=== PATIENT | female | born 1945 | race Caucasian/White ===

== ENCOUNTER 2018-03-06 16:30 | Inpatient (IN) | payer MEDICARE, MEDICAID ==
[2018-03-06] MEDS ORDERED: Sodium Chloride 0.9% 10 ML Syringe FLUSH PRN (16:35)
[2018-03-06 17:42] LABS: CHLORIDE,CL 96 mmol/L (98-107); SODIUM,NA 134 mmol/L (136-145)
[2018-03-06] MEDS ORDERED: Lactated Ringers 1,000 ML IV SCH (17:45)
[2018-03-06 17:52] LABS: ANION GAP 13.2 mmol/L (10-20)
--- NOTE | 2018-03-06 19:53 | EDM.PDOC ---
ED HPI GENERAL MEDICAL PROBLEM - General Chief Complaint: General Source of Information: Reports: Patient History Limitations: Reports: No Limitations - History of Present Illness INITIAL COMMENTS - FREE TEXT/NARRATIVE: Presents to ER with complaints of weakness, sore throat, and lightheadedness. Was initially seen in clinic and was brought to ER. She states that she has felt poorly for the past several days. She has not been checking her temp at home. She states that her shortness of breath is not much worse than normal. Denies nausea,vomiting. She complains of severe sore throat and feels that when she coughs, her throat becomes irritated and she tastes blood. She complains that her stools have been "dark" the past couple of days. Denies any stan rectal bleeding. No abdominal pain. Has not been diaphoretic. In the clinic, staff stated that her blood pressure was approx. 60 systolic. Location: Reports: Abdomen ("dark stools"), Generalized, Other (sore throat) Quality: Reports: Ache Severity: Moderate - Related Data Allergies Allergy/AdvReac Type Severity Reaction Status Date / Time No Known Allergies Allergy Verified 03/06/18 17:06 Home Meds: Home Meds Acetaminophen [Tylenol] 650 mg PO Q8HR PRN 05/17/15 [History] Denosumab [Prolia] 60 mg SUBCUT Q180D 05/17/15 [History] Omeprazole 20 mg PO ACBRK #30 cap.cr 06/12/15 [Rx] busPIRone [Buspar] 5 mg PO BID #60 tablet 06/12/15 [Rx] Albuterol [Ventolin HFA] 1 puff PO Q4H PRN 03/06/18 [History] Apixaban [Eliquis] 2.5 mg PO BID 03/06/18 [History] Calcium Carbonate/Vitamin D3 [Calcium 600-Vit D3 500 Softgel] 1 cap PO DAILY 06/23 [History] Calcium Citrate/Vitamin D3 [Calcitrate + Vit D Cap (315 MG/250 UNITS)] 1 tab PO BIDMEALS 03/06/18 [History] Carbidopa/Levodopa [Sinemet 10-100 mg Tablet] 1 tab PO BID 03/06/18 [History] Cholecalciferol (Vitamin D3) [Vitamin D3] 1,000 unit PO DAILY 03/06/18 [History] Clopidogrel Bisulfate [Clopidogrel] 75 mg PO DAILY 03/06/18 [History] Docusate Sodium 100 mg PO DAILY 03/06/18 [History] Fluticasone/Vilanterol [Breo Ellipta 200-25 Mcg INH] 1 puff PO DAILY 03/06/18 [ History] Metoprolol Succinate 25 mg PO DAILY 03/06/18 [History] Nitroglycerin [Nitrostat] 0.4 mg SL ASDIRECTED PRN 03/06/18 [History] Umeclidinium [place] [Incruse Ellipta*] 1 puff PO DAILY 03/06/18 [History] atorvaSTATin [Lipitor] 40 mg PO BEDTIME 03/06/18 [History] buPROPion [Wellbutrin] 75 mg PO BID 03/06/18 [History] Past Medical History Cardiovascular History: Reports: Afib, High Cholesterol, Hypertension Respiratory History: Reports: COPD Musculoskeletal History: Reports: Arthritis Endocrine/Metabolic History: Reports: Vitamin D Deficiency Social & Family History - Family History Endocrine/Metabolic: Reports: Diabetes, type II Oncologic: Reports: Breast ED ROS GENERAL - Review of Systems Review Of Systems: See Below Constitutional: Reports: No Symptoms, Fever, Chills, Fatigue HEENT: Reports: Throat Pain Respiratory: Reports: Shortness of Breath Cardiovascular: Reports: Dyspnea on Exertion, Lightheadedness Endocrine: Reports: No Symptoms GI/Abdominal: Reports: Other (states that she has had dark stools) : Reports: No Symptoms Musculoskeletal: Reports: No Symptoms Skin: Reports: No Symptoms Neurological: Reports: No Symptoms Psychiatric: Reports: No Symptoms Hematologic/Lymphatic: Reports: No Symptoms Immunologic: Reports: No Symptoms ED EXAM, GENERAL - Physical Exam Exam: See Below Exam Limited By: No Limitations General Appearance: Alert, Anxious, Mild Distress Nose: Normal Inspection, Normal Mucosa, No Blood Throat/Mouth: Normal Lips, Normal Gums, Other (no significant erythema or masses noted.) Head: Atraumatic, Normocephalic Neck: Normal Inspection, Supple, Non-Tender, Full Range of Motion Respiratory/Chest: No Respiratory Distress, Lungs Clear, Normal Breath Sounds, No Accessory Muscle Use, Chest Non-Tender Cardiovascular: Normal Peripheral Pulses, Regular Rate, Rhythm, No Edema, No Gallop, No JVD, No Murmur, No Rub Peripheral Pulses: 4+: Radial (R) GI/Abdominal: Normal Bowel Sounds, Soft, Non-Tender, No Distention, No Abnormal Bruit, No Mass (Female) Exam: Deferred Rectal (Female) Exam: Normal Exam, Normal Rectal Tone, Heme - Stool Back Exam: Normal Inspection, Full Range of Motion Extremities: Normal Inspection, Normal Range of Motion, Non-Tender, Normal Capillary Refill Neurological: Alert, Oriented, CN II-XII Intact, Normal Cognition, Normal Reflexes, No Motor/Sensory Deficits Psychiatric: Normal Affect, Anxious Skin Exam: Warm, Dry, Pallor EKG INTERPRETATION EKG Date: 03/06/18 Rhythm: Other (paced) Course - Vital Signs Last Recorded V/S: Last Vital Signs Temp 36.1 C 03/06/18 16:30 Pulse 90 03/06/18 16:30 Resp 20 03/06/18 16:30 BP 105/39 L 03/06/18 16:30 Pulse Ox 96 03/06/18 16:30 - Orders/Labs/Meds Orders: Active Orders 24 hr Category Date Time Status EKG Documentation Completion [RC] STAT Care 03/06/18 16:36 Active Chest 1V Frontal [CR] Stat Exams 03/06/18 16:36 Taken CULTURE BLOOD [BC] Stat Lab 03/06/18 16:53 Results CULTURE BLOOD [BC] Stat Lab 03/06/18 16:59 Results CULTURE STREP A CONFIRMATION [RM] Stat Lab 03/06/18 18:26 Results STREP SCRN A RAPID W CULT CONF [RM] Stat Lab 03/06/18 18:26 Results UA W/MICROSCOPIC [URIN] Stat Lab 03/06/18 16:35 Ordered Lactated Ringers [Ringers, Lactated] 1,000 ml Med 03/06/18 17:45 Active IV ASDIRECTED Sodium Chloride 0.9% [Saline Flush] Med 03/06/18 16:35 Active 10 ml FLUSH ASDIRECTED PRN Blood Culture x2 Reflex Set [OM.PC] Stat Oth 03/06/18 16:36 Ordered Peripheral IV Insertion Adult [OM.PC] Routine Oth 03/06/18 16:36 Ordered Medication Orders Lactated Ringer's (Ringers, Lactated) 1,000 mls @ 500 mls/hr IV ASDIRECTED MARINA Last Admin: 03/06/18 18:23 Dose: 500 mls/hr Sodium Chloride (Saline Flush) 10 ml FLUSH ASDIRECTED PRN PRN Reason: Keep Vein Open Labs: Laboratory Tests 03/06/18 03/06/18 03/06/18 Range/Units 16:53 16:53 16:53 WBC 13.9 H (4.0-10.0) x10^3/uL RBC 3.72 L (4.00-5.50) x10^6/uL Hgb 11.8 L (12.0-16.0) g/dL Hct 34.8 (33.0-47.0) % MCV 93.5 H D (78.0-93.0) fL MCH 31.7 (26.0-32.0) pg MCHC 33.9 (32.0-36.0) g/dL RDW Coeff of Dc 14.4 (10.0-15.0) % Plt Count 426 H D (130-400) x10^3/uL Neut % (Auto) 83.6 H (50.0-80.0) % Lymph % (Auto) 9.5 L (25.0-50.0) % Carlton % (Auto) 6.6 (2.0-11.0) % Eos % (Auto) 0.2 (0.0-4.0) % Baso % (Auto) 0.1 L (0.2-1.2) % PT 11.6 H (9.6-11.4) SEC INR 1.1 L (2.0-3.5) Sodium 134 L (136-145) mmol/L Potassium 3.2 L (3.5-5.1) mmol/L Chloride 96 L (98-107) mmol/L Carbon Dioxide 28 (21-32) mmol/L Anion Gap 13.2 (10-20) mmol/L BUN 22 H (7-18) mg/dL Creatinine 1.0 (0.55-1.02) mg/dL Est Cr Clr Drug Dosing TNP Estimated GFR (MDRD) 55 Glucose 121 H (74-106) mg/dL Lactic Acid (0.4-2.0) mmol/L Calcium 9.0 (8.5-10.1) mg/dL Corrected Calcium 9.64 (8.5-10.1) mg/dL Phosphorus 2.7 (2.6-4.7) mg/dL Magnesium 1.8 (1.8-2.4) mg/dL Total Bilirubin 0.4 (0.2-1.0) mg/dL AST 17 (15-37) U/L ALT 13 L (14-59) U/L Alkaline Phosphatase 74 (46-116) U/L Troponin I < 0.017 (<=0.056) ng/mL C-Reactive Protein 2.5 H (<=0.9) mg/dL NT-Pro-B Natriuret Pep 2018 H (<=125) pg/mL Total Protein 7.4 (6.4-8.2) g/dL Albumin 3.2 L (3.4-5.0) g/dL Globulin 4.2 Albumin/Globulin Ratio 0.76 TSH, Ultra Sensitive 1.668 (0.358-3.74) uIU/mL 03/06/18 Range/Units 16:53 WBC (4.0-10.0) x10^3/uL RBC (4.00-5.50) x10^6/uL Hgb (12.0-16.0) g/dL Hct (33.0-47.0) % MCV (78.0-93.0) fL MCH (26.0-32.0) pg MCHC (32.0-36.0) g/dL RDW Coeff of Dc (10.0-15.0) % Plt Count (130-400) x10^3/uL Neut % (Auto) (50.0-80.0) % Lymph % (Auto) (25.0-50.0) % Carlton % (Auto) (2.0-11.0) % Eos % (Auto) (0.0-4.0) % Baso % (Auto) (0.2-1.2) % PT (9.6-11.4) SEC INR (2.0-3.5) Sodium (136-145) mmol/L Potassium (3.5-5.1) mmol/L Chloride (98-107) mmol/L Carbon Dioxide (21-32) mmol/L Anion Gap (10-20) mmol/L BUN (7-18) mg/dL Creatinine (0.55-1.02) mg/dL Est Cr Clr Drug Dosing Estimated GFR (MDRD) Glucose (74-106) mg/dL Lactic Acid 2.3 H* (0.4-2.0) mmol/L Calcium (8.5-10.1) mg/dL Corrected Calcium (8.5-10.1) mg/dL Phosphorus (2.6-4.7) mg/dL Magnesium (1.8-2.4) mg/dL Total Bilirubin (0.2-1.0) mg/dL AST (15-37) U/L ALT (14-59) U/L Alkaline Phosphatase (46-116) U/L Troponin I (<=0.056) ng/mL C-Reactive Protein (<=0.9) mg/dL NT-Pro-B Natriuret Pep (<=125) pg/mL Total Protein (6.4-8.2) g/dL Albumin (3.4-5.0) g/dL Globulin Albumin/Globulin Ratio TSH, Ultra Sensitive (0.358-3.74) uIU/mL Meds: Medications Generic Name Dose Route Start Last Admin Trade Name Freq PRN Reason Stop Dose Admin Lactated Ringer's 1,000 mls @ 500 mls/hr 03/06/18 17:45 03/06/18 18:23 Ringers, Lactated IV 500 mls/hr ASDIRECTED MARINA Administration Sodium Chloride 10 ml 03/06/18 16:35 Saline Flush FLUSH ASDIRECTED PRN Keep Vein Open - Radiology Interpretation Free Text/Narrative:: chest xray is negative for acute findings Departure - Discharge Information Referrals: Chayo Harvey DO [Primary Care Provider] - Forms: ED Department Discharge - My Orders Last 24 Hours: My Active Orders 03/06/18 16:35 UA W/MICROSCOPIC [URIN] Stat Sodium Chloride 0.9% [Saline Flush] 10 ml FLUSH ASDIRECTED PRN 03/06/18 16:36 EKG Documentation Completion [RC] STAT Chest 1V Frontal [CR] Stat Blood Culture x2 Reflex Set [OM.PC] Stat Peripheral IV Insertion Adult [OM.PC] Routine 03/06/18 16:53 CULTURE BLOOD [BC] Stat 03/06/18 16:59 CULTURE BLOOD [BC] Stat 03/06/18 17:45 Lactated Ringers [Ringers, Lactated] 1,000 ml IV ASDIRECTED 03/06/18 18:26 CULTURE STREP A CONFIRMATION [RM] Stat STREP SCRN A RAPID W CULT CONF [RM] Stat - Assessment/Plan Last 24 Hours: My Active Orders 03/06/18 16:35 UA W/MICROSCOPIC [URIN] Stat Sodium Chloride 0.9% [Saline Flush] 10 ml FLUSH ASDIRECTED PRN 03/06/18 16:36 EKG Documentation Completion [RC] STAT Chest 1V Frontal [CR] Stat Blood Culture x2 Reflex Set [OM.PC] Stat Peripheral IV Insertion Adult [OM.PC] Routine 03/06/18 16:53 CULTURE BLOOD [BC] Stat 03/06/18 16:59 CULTURE BLOOD [BC] Stat 03/06/18 17:45 Lactated Ringers [Ringers, Lactated] 1,000 ml IV ASDIRECTED 03/06/18 18:26 CULTURE STREP A CONFIRMATION [RM] Stat STREP SCRN A RAPID W CULT CONF [RM] Stat
[2018-03-06] MEDS ORDERED: cefTRIAXone 1 GM Vial IVPUSH ONE (20:16)
[2018-03-06] MEDS ORDERED: Nitroglycerin 0.4 MG Tab.SL SL PRN (21:07)
[2018-03-06] MEDS ORDERED: Acetaminophen 325 MG Tab PO PRN (21:07)
[2018-03-06] MEDS ORDERED: Albuterol 0.083% 2.5 MG/3 ML Neb Soln NEB PRN (21:15)
[2018-03-06] MEDS: Azithromycin 250 MG Tab PO SCH (22:14)
[2018-03-06] MEDS: Potassium Chloride 10 MEQ Tab.ER PO SCH (22:15)
[2018-03-06] MEDS: Magnesium Oxide 400 MG Tab PO SCH (22:15)
[2018-03-06] MEDS: Apixaban 2.5 MG Tab PO SCH (22:15)
--- NOTE | 2018-03-06 23:53 | HP ---
CHIEF COMPLAINT: Weakness, sore throat, and poor appetite. HISTORY OF PRESENT ILLNESS: This is a 72-year-old female who has been feeling unwell per family with the sore throat over the past month, not eating well, lost probably about 15 pounds. Has not really ate anything in the last 5 days. She has been coughing up some blood, having dark stools, but Hemoccult was negative in the ER. She is having no pain anywhere. No chest pain. No abdominal pain, but did admit to feeling lightheaded. She has felt hot and cold, but she had not been checking for any temperatures. She came to the clinic today and they could not get a blood pressure, so they brought her over to the emergency room. She has not had any burning with urination, no nausea or vomiting. She is a former smoker, but never used any chew. She has had coronary disease with previous stenting. She does have a pacemaker. She has had previous gastritis. Otherwise, she had workup in the ER also including an elevated white count of 13.9. Chest x-ray did not show any pneumonia, but she received 1 g of Rocephin. Lactic acid was also 2.3. Her proBNP was elevated at 2018, but she has not been more short of breath than usual. She has COPD and has previous exacerbations, but her last hospital visit was about 2 years ago when she got a blood transfusion. ALLERGIES: None. PAST MEDICAL HISTORY: Quite extensive, did include a prolonged hospital stay back in 2014 for acute on chronic COPD exacerbation with severe underlying COPD. She has a history of atrial fibrillation with RVR. She has had previous ablation and recently a pacemaker in the past couple years. She has also had chronic diastolic heart failure with EF of 55% back in 2011. She has not had any recent exacerbations. She has hyponatremia which is chronic. It was 134 today. She had previous GI bleeding and gastritis. She has had osteoporosis. PAST SURGICAL HISTORY: The patient has had incisional hernia with repair and Meckel's diverticulum surgery. SOCIAL HISTORY: Socially, the patient is . She has 3 children, 2 of her daughters are present tonight. She is a previous smoker. She previously drank alcohol, but now has only a beer once in a while. FAMILY HISTORY: Showing that both parents to be . MEDICATIONS: Her medication list is reviewed, does show her to be no longer on aspirin, but she is on Eliquis 2.5 b.i.d., Lipitor 40 mg daily, Wellbutrin 75 mg twice daily, BuSpar 5 mg b.i.d., calcium and vitamin D, vitamin D 1000 daily, Plavix 75 daily, Toprol 25 daily, Dulera inhaler or Breo I guess is what she takes at home and Incruse inhaler, nitro as needed, and Prilosec 20 mg daily. REVIEW OF SYSTEMS: General: She has had weight loss and poor appetite. HEENT: She has had a sore throat. She has had some swollen in the neck and tenderness to palpation there anteriorly on the left side. Cardiac: She has had no chest pain. No palpitation. She does have a pacemaker. Respiratory: She has had a cough off and on with productive of blood. No wheezing, but has been short of breath off and on. Abdomen: No pain, but has had black stools. : No new urinary symptoms. Otherwise, all systems reviewed and found to be negative unless otherwise stated. She did not mention to me, but her daughter states that she fell about 2 months ago and had some bruising in her low back and buttocks. Mental Status: She is alert. She is orientated. There has not been any reports of confusion. She denies any depression. PHYSICAL EXAMINATION: Vital Signs: Her weight is 57.1 kg, which is actually up over 10 pounds from a couple years ago, but she had recently gained a lot of weight. Now, she is losing it again. Temperature 97.4, pulse 77, blood pressure 107/48, respiratory rate 18, and O2 of 98% on room air. General: She is in no acute distress. She is mildly pale. Heart: Regular rate and rhythm without murmur noted. Lungs: Lung sounds are clear but they are decreased especially over the right base, but no crackles or wheezes appreciated. Abdomen: Nondistended and nontender. Extremities: Warm and dry with no edema. Mental Status: She is alert and orientated x3. DIAGNOSTIC STUDIES: Chest x-ray examined, no infiltrates and no pneumonia. Lab work did show white count 13.9, hemoglobin 11.8, previous clinic hemoglobin was 14, and platelets 426. INR 1.1. Sodium 134, potassium 3.2, previous clinic sodium actually 130, chloride 96, bicarb 28, BUN 22, creatinine 1, glucose 121, lactic acid 2.3, calcium 9, AST 17, ALT 13, bilirubin 1.8, albumin would be 3.2. Troponin negative less than 0.017. CRP 2.5. ProBNP 2018, which is elevated. TSH is 1.668. UA is pending. EKG shows a paced rhythm. ASSESSMENT: 1. Weakness with hemoptysis. Concern would be for pneumonia versus underlying lung tumors or even chronic obstructive pulmonary disease exacerbation. Given the patient's white count and elevated lactic acid, however, she did not meet criteria for sepsis, but she is on a beta brittany and pacemaker dependence, likely would not have tachycardia. Her respiratory status at this point is stable. We will do IV Rocephin and oral Zithromax and arrange for CT scan tomorrow. 2. Poor appetite, weight loss, and sore throat. We would include a neck CT. 3. Known chronic obstructive pulmonary disease severe with exacerbation. We will place her also on Solu-Medrol 40 mg daily and give her some p.r.n. nebulizers for DVT prophylaxis. She is therapeutic on Eliquis for her mild anemia. This may be worse after giving IV fluids from hemodilution. She very easily could have some hematomas with her fall that was a month or so ago, but now she is not having any blood in the stools. We will continue her on Prilosec and continue to monitor. 4. Hypokalemia. We will replace orally. Repeat in the morning. We will also do a Mag level. 5. Lactic acidosis. We will repeat a lactic acid level now. It has been 4 hours since the first one was drawn. 6. Coronary artery disease. We will continue her Plavix. She is not having any chest pain. We will monitor with telemetry. 7. Dehydration due to poor oral intake. We will continue her on normal saline. We will check a UA. We will bladder scan as she has not voided yet in over 4 hours. Strep test was also done in the ER, which was negative. Blood cultures were sent. PLAN: The patient will be admitted to acute cares for further treatment and workup of weight loss, dehydration and COPD exacerbation. CODE STATUS: The patient's code level is 1. MKA: 03/06/2018 21:30:46 MODL: 03/06/2018 23:49:00 /[id number]
[2018-03-07] MEDS: Sodium Chloride 0.9% 1,000 ML IV SCH ×4 (02:25→20:53)
[2018-03-07] MEDS: Omeprazole 20 MG Cap.CR PO SCH (06:34)
[2018-03-07] MEDS ORDERED: Albuterol 0.083% 2.5 MG/3 ML Neb Soln INH PRN (07:00)
[2018-03-07 07:02] LABS: CHLORIDE,CL 98 mmol/L (98-107); SODIUM,NA 134 mmol/L (136-145)
[2018-03-07 07:03] LABS: ANION GAP 14.3 mmol/L (10-20)
[2018-03-07] MEDS: Ipratropium 0.02% 0.5 MG/2.5 ML Neb Soln INH SCH ×4 (07:10→20:34)
[2018-03-07] MEDS: Potassium Chloride 10 MEQ Tab.ER PO SCH ×2 (08:08→17:48)
[2018-03-07] MEDS: methylPREDNISolone Sodium Succinate 40 MG/1 ML SDV IVPUSH SCH (08:08)
[2018-03-07] MEDS: Cholecalciferol (Vitamin D3) 1,000 Unit Tab PO SCH (08:09)
[2018-03-07] MEDS: Formoterol/Mometasone 100-5 MCG 8.8 GM Inhaler IH SCH ×3 (08:09→20:35)
[2018-03-07] MEDS: Calcium Citrate/Vitamin D3 315 MG-250 Unit Tab PO SCH ×2 (08:09→17:48)
[2018-03-07] MEDS: busPIRone 5 MG Tab PO SCH ×2 (08:09→20:50)
[2018-03-07] MEDS: Magnesium Oxide 400 MG Tab PO SCH (08:09)
[2018-03-07] MEDS: Apixaban 2.5 MG Tab PO SCH (08:09)
[2018-03-07] MEDS: Carbidopa/Levodopa 10-100 MG Tab PO SCH ×2 (08:09→20:34)
[2018-03-07] MEDS: Clopidogrel 75 MG Tab PO SCH (08:09)
[2018-03-07] MEDS: Metoprolol Succinate 25 MG Tab.ER PO SCH ×2 (08:19→08:52)
[2018-03-07] MEDS: cefTRIAXone 1 GM Vial IVPUSH SCH (08:52)
--- NOTE | 2018-03-07 09:35 | PN ---
Progress Note for EMRE PITTS Date: 03/07/2018 Room #: .205 SUBJECTIVE: This is hospital day #2 for a 72-year-old admitted with leukocytosis, cough, and productive sputum last evening, treated for a COPD exacerbation. Given IV Rocephin and oral Zithromax. She is scheduled to get some Solu-Medrol today. She otherwise did not receive any nebulizers during the night, but is on her regular inhalers including Atrovent. Otherwise, she is still having throat pain. She is having difficulty swallowing her pills. This has been coming on over a few weeks. OBJECTIVE: Vital Signs: She has been afebrile. Objectively, her temperature is 98.4, pulse 86, blood pressure 108/43, respiratory rate 20, O2 93% on room air. General: She is in no acute distress. HEENT: The posterior pharynx was examined today. Did include a left tonsillar enlargement. No bleeding noted. Heart: Regular rate and rhythm. Lungs: Lung sounds are decreased, but no crackles or wheezes. Abdomen: Positive bowel sounds. Soft and nontender. Extremities: Warm and dry. No edema. : She has not voided yet, but bladder scan was only around 200. She did get some fluids overnight. LABORATORY DATA: Lab work does show her white count improved to 11.2, hemoglobin 10.7, platelets 375. Sodium 134, potassium 3.3, chloride 98, bicarbonate 25, BUN 17, lactic acid normalized at 1.2, glucose 85, calcium 8.7, magnesium 1.7. ASSESSMENT: 1. Weakness with hemoptysis. Concern was for chronic obstructive pulmonary disease exacerbation or pneumonia versus now tonsillar mass, could be causing some of this as well. We will proceed with a CT chest and neck today to further evaluate this. 2. Chronic obstructive pulmonary disease exacerbation. She is on IV Rocephin, Solu-Medrol, and oral Zithromax. Due to difficulty swallowing, I will continue with IV Rocephin. 3. Poor appetite and weight loss, could be related to the neck tonsillar mass. We will further evaluate today. 4. Hypokalemia. She is on oral replacement. She is close to goal, so we will try to avoid doing IV, but could consider if needed. 5. Lactic acidosis, resolved. 6. Coronary artery disease. She will continue on her home medications. 7. History of pacemaker. She has been paced with her telemetry. I am going to go ahead and discontinue it. 8. Dehydration. She will remain on IV fluids. We will continue to monitor her blood pressure closely, holding parameters in place for her metoprolol. PLAN: The patient will have CT neck and chest today. We will repeat lab work tomorrow. Continue IV antibiotics. MKA: 03/07/2018 08:41:24 MODL: 03/07/2018 09:31:30 /[id number]
[2018-03-07] MEDS ORDERED: Iopamidol 612 MG/ML 100 ML Bottle IVPUSH ONE ×2 (10:20→10:29)
[2018-03-07] MEDS ORDERED: Iopamidol 612 MG/ML 50 ML SDV IV ONE (10:29)
[2018-03-07] MEDS: atorvaSTATin 40 MG Tab PO SCH (20:34)
[2018-03-07] MEDS: Azithromycin 250 MG Tab PO SCH (20:35)
[2018-03-08] MEDS: ALPRAZolam 0.25 MG Tab PO PRN (00:24)
[2018-03-08] MEDS: Sodium Chloride 0.9% 1,000 ML IV SCH (03:50)
[2018-03-08] MEDS: Omeprazole 20 MG Cap.CR PO SCH (06:32)
[2018-03-08] MEDS: Ipratropium 0.02% 0.5 MG/2.5 ML Neb Soln INH SCH ×4 (06:48→19:55)
[2018-03-08 06:57] LABS: CHLORIDE,CL 103 mmol/L (98-107); SODIUM,NA 135 mmol/L (136-145)
[2018-03-08 07:02] LABS: ANION GAP 9.5 mmol/L (10-20)
[2018-03-08] MEDS: cefTRIAXone 1 GM Vial IVPUSH SCH (10:40)
[2018-03-08] MEDS: Carbidopa/Levodopa 10-100 MG Tab PO SCH ×2 (10:41→19:53)
[2018-03-08] MEDS: Cholecalciferol (Vitamin D3) 1,000 Unit Tab PO SCH (10:41)
[2018-03-08] MEDS: Calcium Citrate/Vitamin D3 315 MG-250 Unit Tab PO SCH ×2 (10:41→18:13)
[2018-03-08] MEDS: busPIRone 5 MG Tab PO SCH ×2 (10:41→19:54)
[2018-03-08] MEDS: Magnesium Oxide 400 MG Tab PO SCH (10:41)
[2018-03-08] MEDS: Potassium Chloride 10 MEQ Tab.ER PO SCH ×2 (10:41→18:13)
[2018-03-08] MEDS: Clopidogrel 75 MG Tab PO SCH (10:43)
[2018-03-08] MEDS: Metoprolol Succinate 25 MG Tab.ER PO SCH (10:43)
[2018-03-08] MEDS: Formoterol/Mometasone 100-5 MCG 8.8 GM Inhaler IH SCH ×2 (10:47→19:55)
[2018-03-08] MEDS: methylPREDNISolone Sodium Succinate 40 MG/1 ML SDV IVPUSH SCH (11:01)
--- NOTE | 2018-03-08 13:02 | PN ---
Progress Note for EMRE PITTS Date: 03/08/2018 Room #: VM.205 SUBJECTIVE: This is hospital day #3 on a 72-year-old, admitted with dehydration, poor oral intake, weight loss, sore throat, found to have a left tonsillar mass up to 7 cm yesterday. She has been able to eat some, taking in pudding with her pills. She has not had any worsening shortness of breath. There was concern for coughing up blood and COPD exacerbation, so she has been on Zithromax and IV Rocephin. She did get a dose of Solu-Medrol yesterday. She has her nebs ordered, but has not required them. She is using her home inhalers. Her Eliquis dose was held last night. OBJECTIVE: Vital Signs: On exam, temperature 97.1, pulse 74, blood pressure 79/30, respiratory rate 20, and O2 95% on room air. GENERAL: She is in no acute distress. HEART: Regular rate and rhythm. LUNGS: Sounds are clear to auscultation bilaterally without crackles or wheezes. ABDOMEN: Positive bowel sounds. Soft and nontender. EXTREMITIES: Warm and dry. MENTAL STATUS: Alert and orientated x3. HEENT: Some lymph node enlargement over the left neck area with tenderness in the anterior cervical nodes. SKIN: Overall, no rashes. She does appear just mildly pale. LABORATORY DATA: Lab work from today was reviewed. It does show her to have a white count of 8.6, hemoglobin 9.2, and platelets 347. Sodium 135, potassium 3.5, chloride 103, bicarb 26, BUN 8, creatinine 0.7, glucose 113, calcium 8.3, and magnesium 1.7 yesterday. ASSESSMENT: 1. Hypokalemia and hypomagnesemia, being replaced and improving. 2. Weakness and hemoptysis, almost certainly from this left tonsillar mass and poor oral intake. Followup with ENT is already arranged for 4:15 tomorrow afternoon, probably we will plan a biopsy the next day and potentially even a tracheostomy. 3. Chronic obstructive pulmonary disease with concern for recent exacerbation. Her breathing is much better. She has been afebrile. At this point, I am going to discontinue the IV Rocephin and oral Zithromax as I do feel her source of illness was this left tonsillar mass. 4. Strep-positive culture in the tonsils. Strep screen was negative. Clinically, she does not have Strep throat, but has already received IV Rocephin, so should be covered. 5. Poor appetite and weight loss. We are encouraging soft diet intake. 6. Lactic acidosis, resolved. 7. History of coronary artery disease, stable, without any chest pain. 8. History of pacemaker. PLAN: At this point, the patient will continue on acute cares. Her blood pressures are still running low, but I am going to hold off on any further IV fluids and monitor her closely. We will hold her Toprol for blood pressures under 90. She does have a history of atrial fibrillation. She has been on Eliquis, but her rates have been paced and controlled. Otherwise, potential for her to be seen by PT to see if she qualifies for swing bed, especially if she got a feeding tube, she may need to come back for further cares, but this all depends on her ENT appointment tomorrow. We will discontinue antibiotics. We will repeat lab work in the morning. MKA: 03/08/2018 12:34:58 MODL: 03/08/2018 12:58:35 /[id number]
[2018-03-08] MEDS: Azithromycin 250 MG Tab PO SCH (19:54)
[2018-03-08] MEDS: atorvaSTATin 40 MG Tab PO SCH (19:54)
[2018-03-09] MEDS: ALPRAZolam 0.25 MG Tab PO PRN (00:29)
[2018-03-09] MEDS: Omeprazole 20 MG Cap.CR PO SCH (06:40)
[2018-03-09] MEDS: Ipratropium 0.02% 0.5 MG/2.5 ML Neb Soln INH SCH ×2 (06:50→10:49)
[2018-03-09 07:20] LABS: CHLORIDE,CL 102 mmol/L (98-107); SODIUM,NA 136 mmol/L (136-145)
[2018-03-09 07:25] LABS: ANION GAP 11.8 mmol/L (10-20)
[2018-03-09] MEDS: Metoprolol Succinate 25 MG Tab.ER PO SCH (08:18)
[2018-03-09] MEDS: busPIRone 5 MG Tab PO SCH (08:19)
[2018-03-09] MEDS: Magnesium Oxide 400 MG Tab PO SCH (08:19)
[2018-03-09] MEDS: Calcium Citrate/Vitamin D3 315 MG-250 Unit Tab PO SCH (08:19)
[2018-03-09] MEDS: Carbidopa/Levodopa 10-100 MG Tab PO SCH (08:19)
[2018-03-09] MEDS: Potassium Chloride 10 MEQ Tab.ER PO SCH (08:19)
[2018-03-09] MEDS: Clopidogrel 75 MG Tab PO SCH (08:19)
[2018-03-09] MEDS: Cholecalciferol (Vitamin D3) 1,000 Unit Tab PO SCH (08:19)
[2018-03-09] MEDS: Formoterol/Mometasone 100-5 MCG 8.8 GM Inhaler IH SCH (08:24)
[2018-03-09] MEDS: cefTRIAXone 1 GM Vial IVPUSH SCH (08:43)
[2018-03-09] MEDS ORDERED: Amoxicillin/Clavulanate K 500-125 MG Tab PO SCH (09:25)
[2018-03-09] MEDS ORDERED: Amoxicillin/Clavulanate K 600-42.9 MG/5 ML Susp 125 ML Bottle PO SCH ×2 (09:31→18:00)
[2018-03-09 10:38] VITALS: BP 90/46
--- NOTE | 2018-03-09 21:43 | DISCH ---
PRIMARY DISCHARGE DIAGNOSES: 1. Dehydration with hypokalemia and hypomagnesemia, secondary to poor oral intake from a left tonsillar mass. 2. Weakness related to hypotension from dehydration, improved on discharge. 3. 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 She did have a positive strep culture and had been receiving intravenous Rocephin and oral Zithromax, was switched over to Augmentin on discharge, she had received 3 doses of Rocephin. 4. Underlying chronic obstructive pulmonary disease, severe, with concern for exacerbation. She had received 1 dose of Solu-Medrol. She had also received the Rocephin and Zithromax. 5. Lactic acidosis, on admission, resolved. She never had any fevers during her stay, did not meet criteria for sepsis. 6. History of coronary artery disease, stable without chest pain. 7. History of pacemaker. 8. History of atrial fibrillation, she is status post ablation. She has been on Eliquis, but that has been on hold since her last dose given on the morning of 03/07/2018. REASON FOR ADMISSION: On the date of admission, this 73-year-old who had not been feeling well with a sore throat, weight loss, poor appetite over the last month, came into the clinic, they were not even able to get a blood pressure on her, so she was taken to the ER and further evaluated. She had a strep screen, which was negative. She had a chest x-ray, which did not show any infiltrates. She was not having any worse shortness of breath, but was coughing up some bloody sputum. She also was reporting some black stools, but Hemoccult was negative. She does have a history of gastritis as well. She therefore was admitted to the floor, I did examine her, noticed her to have a very large left tonsillar mass. CT of the chest and neck was arranged due to this hemoptysis and the mass. Her chest CT was not showing any nodules or pneumonias, but her neck CT did show the extensive mass as described above. The patient actually started feeling better, she was swallowing better by the end of her stay, she was tolerating 40% to 50% of meals, having things like tomato soup and soft sandwiches. She had no chest pain during her stay, her breathing improved, she still had a cough, but it was just some whitish sputum, she was not having any wheezing. Otherwise, her potassium and magnesium were replaced orally. Repeat labs today did show a sodium 136, potassium 3.8, chloride 102, bicarb 26, BUN 5, creatinine 0.8, calcium 8.9, glucose 112. White count normal at 9.1, she did have a white count up to 13,000 on admission, hemoglobin back up to 10 from 9.2, and platelets were 378. She was on her Eliquis for the early part of her stay for DVT prophylaxis, but it had been held due to planned potential biopsy. UA was done and showed only 5 to 10 wbcs. She was having no dysuria, in fact it took over a liter of fluids before she was even able to pass urine as she was quite dehydrated on her stay, but her kidney function always remained normal. Discussion was had with Dr. Jackson of ENT and followup appointment was made for this afternoon. The patient was stable enough that we felt she could go outpatient and did not need to be transferred. PHYSICAL EXAMINATION: Vital Signs: Her discharging vitals included temperature 97.6, pulse 84, blood pressure 102/64, respiratory rate 21, O2 95% on room air. She did receive her metoprolol this morning, but did not receive it yesterday due to lower blood pressures including an 82/47. General: She is in no acute distress. Heart: Regular rate and rhythm S1, S2 without murmur. Lungs: Sounds are a little bit decreased over the left base with some fine crackles, otherwise it cleared when she took deeper breaths. No wheezing appreciated. Abdomen: Nondistended, nontender. Extremities: Warm and dry. No edema. Mental Status: She is alert and orientated x3. HEENT: She continues to show some lymph node enlargement in the left anterior cervical chain, but there is less tenderness today. Her tonsil did have some crypt and abscess looking spots now today that were not noted on her initial exam. It appeared to still be enlarged in size overall. Skin: She had some bruising, but no rashes. She did not appear significantly pale. DISCHARGE PLANS AND INSTRUCTIONS: She is going to [place] to see ENT today for further decision on biopsy. She will hold Eliquis until that is arranged. She will continue Augmentin liquid 600 twice daily for another 6 days to treat for strep. It should be noted she had no fevers during her stay. She will take potassium and magnesium supplements as directed. We will have a BMP, mag, and CBC at her followup visit. She will continue working on eating soft foods and drinking liquids. Did discuss the potential for if she needs a feeding tube. If that were to take place, she would probably need to come back on swing bed or at least have Home Health involved. Home Health was arranged and ordered for the patient in case it is needed. The addendum was done with a [id number] visit today by myself 03/09/2018. The patient requires Home Health for new left tonsillar mass, for teaching and instructions and monitoring of airway compromise and food intake with vitals including a tendency to get low blood pressures from dehydration, and need for med adjustments with her metoprolol. She was seen by PT here and would benefit from further therapy for endurance. She is homebound due to her impaired mobility and frailty from recent weight loss and poor oral intake. I will periodically review this plan of care. Greater 30 minutes was spent on the discharge process. ANA: 03/09/2018 09:44:45 MODL: 03/09/2018 21:38:34 /[id number]
== END 2018-03-09 14:30 | disposition home health service (06) | DRG 191 ==
LOC: VM.ED 16:30 → VM.MS 20:17 → UNDOADMIN 20:17 → VM.MS 20:22
PROVIDERS: ADMIT Internal Medicine; ATTEND Internal Medicine
DX: R53.1 Weakness (principal); R06.02 Shortness of breath; J02.9 Acute pharyngitis, unspecified; R42 Dizziness and giddiness; J44.1 Chronic obstructive pulmonary disease with (acute) exacerbation; R05 Cough; E78.00 Pure hypercholesterolemia, unspecified; I10 Essential (primary) hypertension; J44.9 Chronic obstructive pulmonary disease, unspecified; M19.90 Unspecified osteoarthritis, unspecified site; E55.9 Vitamin D deficiency, unspecified; E87.2 Acidosis; I50.32 Chronic diastolic (congestive) heart failure; E87.1 Hypo-osmolality and hyponatremia; E87.6 Hypokalemia; E83.42 Hypomagnesemia; E86.0 Dehydration; D64.9 Anemia, unspecified; I48.91 Unspecified atrial fibrillation; M81.0 Age-related osteoporosis without current pathological fracture; I25.10 Atherosclerotic heart disease of native coronary artery without angina pectoris; J35.9 Chronic disease of tonsils and adenoids, unspecified; Z95.5 Presence of coronary angioplasty implant and graft; Z87.891 Personal history of nicotine dependence; Z95.0 Presence of cardiac pacemaker; Z79.01 Long term (current) use of anticoagulants; Z79.899 Other long term (current) drug therapy
CPT/HCPCS: 36415; 70491; 71045; 71260; 80048; 80053; 81001; 83605; 83735; 83880; 84100; 84443; 84484; 85025; 85610; 86140; 87040; 87081; 87880-QW; 93005; 94640; 94760; 96361; 96374; 97161-GP; 99285; A9270-GY; J0696; J2920; J7030; J7120; Q9967